=== PATIENT | male | born 1985 | race American Indian/Alaskan Native ===

== ENCOUNTER 2017-06-29 17:36 | Emergency (ER) | payer MEDICAID, OTHER ==
[2017-06-29 17:36] VITALS: BMI 21.8
[2017-06-29 17:48] VITALS: RESP 18
--- NOTE | 2017-06-29 20:01 | ED PDOC ---
Arrival/HPI - General Chief Complaint: Abnormal Skin Integrity Time Seen by Provider: 06/29/17 19:45 - History of Present Illness Narrative History of Present Illness (Text): Patient states he's been having pain in the right buttock since Tuesday06/24/17. Patient states he's never had this before. Patient denies fever, chills, nausea , vomiting, problems with bowel movements and problems with urination. Patient admits to pain and a skin lesion at the right intergluteal region (Raiza Morgan) Past Medical History - Provider Review Nursing Documentation Reviewed: Yes - Past History Past History: Non-Contributing - Infectious Disease Hx of Infectious Diseases: None - Psychiatric Hx Substance Use: No - Anesthesia Hx Anesthesia: No Family/Social History - Physician Review Nursing Documentation Reviewed: Yes Family/Social History: Unknown Family HX Smoking Status: Heavy Smoker > 10 Cigarettes Daily Hx Alcohol Use: Yes Hx Substance Use: No Allergies/Home Meds Allergies/Adverse Reactions: Allergies EGG Allergy (Severe, Verified 06/29/17 17:46) ANAPHYLAXIS Review of Systems - Physician Review All systems were reviewed & negative as marked: Yes - Review of Systems Skin: Abscess (right intergluteal abscess) Physical Exam Vital Signs Reviewed: Yes Temperature: Afebrile Blood Pressure: Normal Pulse: Regular Respiratory Rate: Normal Appearance: Positive for: Well-Appearing, Non-Toxic, Comfortable Mental Status: Positive for: Alert and Oriented X 3 - Systems Exam Head: Present: Atraumatic, Normocephalic Pupils: Present: PERRL Extroacular Muscles: Present: EOMI Conjunctiva: Present: Normal Mouth: Present: Moist Mucous Membranes. No: Dry, Drooling, Trismus Pharnyx: Present: Normal. No: ERYTHEMA, EXUDATE, TONSILS ENLARGED Nose (External): Present: Atraumatic. No: Abrasion, Contusion, Laceration Neck: Present: Normal Range of Motion, Trachea Midline. No: Meningeal Signs, MIDLINE TENDERNESS, JVD, Bruit Respiratory/Chest: Present: Clear to Auscultation, Good Air Exchange, Respiratory Distress Cardiovascular: Present: Regular Rate and Rhythm, Normal S1, S2. No: Murmurs Upper Extremity: Present: Normal Inspection, Normal ROM, NORMAL PULSES, Capillary Refill < 2s. No: Edema Lower Extremity: Present: Normal Inspection, NORMAL PULSES, Normal ROM, Capillary Refill < 2 s. No: Edema Neurological: Present: GCS=15, CN II-XII Intact, Speech Normal Skin: Present: Warm, Dry, Rashes, Normal Color, Induration (2"x1" ), Abscess ( right sided with packing, open wound drainage) Psychiatric: Present: Alert, Oriented x 3, Normal Insight, Normal Concentration Vital Signs Temp Pulse Resp BP Pulse Ox 06/29/17 21:30 73 18 142/40 L 97 06/29/17 19:36 98.6 F 66 12 144/43 L 100 06/29/17 17:48 98.2 F 100 H 18 115/83 99 Medical Decision Making Re-evaluation Time: 21:33 Reassessment Condition: Improving,but remains with symptoms ED Course and Treatment: 06/29/17 21:32 incision and drainage and packing tylenol wound culture and gram stain (Raiza Morgan) Impression: Pt seen and evaluated with medical insurance collector. Pt presented for right buttock pain for 5 days with associated abscess to the area. Plan: -- Incision and drainage -- Reassess and disposition Progress Notes: Incision and drainage performed by medical insurance collector under my supervision. Pt tolerated procedure well. No complications. (Jorge Cason) - Medication Orders Current Medication Orders: Discontinued Medications Acetaminophen (Tylenol 325mg Tab) 650 mg PO STAT STA Stop: 06/29/17 21:26 Last Admin: 06/29/17 21:48 Dose: 650 mg Procedures - Incision and Drainage Site: right inter gluteal abscess Blade Size: 11 I & D Procedure: betadine prep, sterile drapes applied, sterile dressing applied - Incision and Drainage Progress: betaiodine for sterilization 1% lidocaine drawn and given for local anesthetic patient draped with sterile blue towels 11 blade was used to make an incision wound cultures taken abscess drained iodoform packing in place sterile dressings applied (Raiza Morgan) Disposition/Present on Arrival - Present on Arrival Any Indicators Present on Arrival: No History of DVT/PE: No History of Uncontrolled Diabetes: No Urinary Catheter: No History of Decub. Ulcer: No History Surgical Site Infection Following: None - Disposition Have Diagnosis and Disposition been Completed?: Yes Disposition Time: 21:34 Patient Plan: Discharge - Disposition Diagnosis: Gluteal abscess Disposition: HOME/ ROUTINE Condition: IMPROVED Additional Instructions: continue with antibiotics as directed return to ED or family doctor to remove the packing/change packing as needed in two days Prescriptions: Cephalexin [cephalexin] 500 mg PO TID #21 cap Sulfamethoxazole/Trimethoprim [Bactrim 400-80 mg Tablet] 2 each PO BID #28 tablet Forms: [employer] ([place])
[2017-06-29 21:31] VITALS: BP 142/40; PULSE 73; TEMP 98.6; O2SAT 97
== END 2017-06-29 21:49 | disposition home or self-care (01) ==
LOC: ED 17:36
DX: L02.31 Cutaneous abscess of buttock (principal)

== ENCOUNTER 2017-07-01 09:55 | Emergency (ER) | payer MEDICAID, OTHER ==
[2017-07-01 09:56] VITALS: BMI 21.8
[2017-07-01 10:13] VITALS: BP 159/99; PULSE 123; RESP 20; TEMP 97.6; O2SAT 98
--- NOTE | 2017-07-01 11:03 | ED PDOC ---
Arrival/HPI - General Chief Complaint: Abnormal Skin Integrity Time Seen by Provider: 07/01/17 10:25 Historian: Patient - History of Present Illness Narrative History of Present Illness (Text): 07/01/17 10:58 This 31 yo male presents to this ED for wound recheck. Patient stated he had a boil on his buttock. He had an I&D x 2 days ago, and recommended to return to ED for wound check. Patient admits wound dressing change yesterday. Denies new complains. Time/Duration: Other (see hpi) Context: Home Past Medical History - Provider Review Nursing Documentation Reviewed: Yes - Past History Past History: Non-Contributing - Infectious Disease Hx of Infectious Diseases: None - Cardiac Hx Cardiac Disorders: No - Pulmonary Hx Respiratory Disorders: Yes Hx Asthma: Yes - Neurological Hx Neurological Disorder: No - HEENT Hx HEENT Disorder: No - Renal Hx Renal Disorder: No - Endocrine/Metabolic Hx Endocrine Disorders: No - Hematological/Oncological Hx Blood Disorders: No - Integumentary Hx Dermatological Disorder: No - Musculoskeletal/Rheumatological Hx Musculoskeletal Disorders: No - Gastrointestinal Hx Gastrointestinal Disorders: No - Genitourinary/Gynecological Hx Genitourinary Disorders: No - Psychiatric Hx Psychophysiologic Disorder: No Hx Substance Use: No - Anesthesia Hx Anesthesia: No Family/Social History - Physician Review Nursing Documentation Reviewed: Yes Family/Social History: Other (noncontributory) Smoking Status: Heavy Smoker > 10 Cigarettes Daily Hx Alcohol Use: Yes Hx Substance Use: No Allergies/Home Meds Allergies/Adverse Reactions: Allergies EGG Allergy (Severe, Verified 07/01/17 10:08) ANAPHYLAXIS Review of Systems - Review of Systems Constitutional: Normal. absent: Fatigue, Weight Change, Fevers Eyes: Normal ENT: Normal Respiratory: Normal. absent: SOB, Cough Cardiovascular: Normal Gastrointestinal: Normal Genitourinary Male: Normal Musculoskeletal: Other (wound check) Skin: Normal Neurological: Normal Endocrine: Normal Hemo/Lymphatic: Normal Psychiatric: Normal Physical Exam Vital Signs Temp Pulse Resp BP Pulse Ox 07/01/17 10:13 123 H 20 159/99 H 98 07/01/17 10:09 97.6 F Temperature: Afebrile Blood Pressure: Normal Pulse: Regular Respiratory Rate: Normal Appearance: Positive for: Well-Appearing, Non-Toxic, Comfortable Pain Distress: None Mental Status: Positive for: Alert and Oriented X 3 - Systems Exam Head: Present: Atraumatic, Normocephalic Pupils: Present: PERRL Extroacular Muscles: Present: EOMI Conjunctiva: Present: Normal Mouth: Present: Moist Mucous Membranes Neck: Present: Normal Range of Motion Upper Extremity: Present: Normal Inspection, Normal ROM Lower Extremity: Present: Normal Inspection, Normal ROM Neurological: Present: GCS=15, CN II-XII Intact, Speech Normal, Motor Func Grossly Intact, Normal Sensory Function, Normal Cerebellar Funct, Gait Normal Skin: Present: Warm, Dry, Normal Color, Other (left buttock wound has very small amot of pus. No packing visualized, mild induration.). No: Rashes Psychiatric: Present: Alert, Oriented x 3, Normal Insight, Normal Concentration Medical Decision Making ED Course and Treatment: 07/01/17 11:05 Patient has not filled ABX yet. Patient was recommended to start ABX right away. Wound was manually drained. Packing was position within wound. Dressing applied. Patient recommended to return in 2 days. Re-evaluation Time: 11:06 Reassessment Condition: Re-examined, Improved Disposition/Present on Arrival - Present on Arrival Any Indicators Present on Arrival: No History of DVT/PE: No History of Uncontrolled Diabetes: No Urinary Catheter: No History of Decub. Ulcer: No History Surgical Site Infection Following: None - Disposition Have Diagnosis and Disposition been Completed?: Yes Diagnosis: Encounter for wound re-check, Change or removal of wound packing Disposition: HOME/ ROUTINE Disposition Time: 11:07 Patient Plan: Discharge Patient Problems: Current Active Problems Problem Status Onset Change or removal of wound packing Acute Encounter for wound re-check Acute Condition: GOOD Discharge Instructions (ExitCare): Abscess Incision and Drainage (ED) Additional Instructions: Call private doctor for wound check in 2 days. return to emergency if unable to see your doctor. Keep wound clean and dry. Take antibiotic as instructed by previous doctor. Return to emergency sooner if wound worsen or fever. Prescriptions: Ibuprofen [Motrin] 600 mg PO Q8 PRN #20 tab PRN Reason: Pain, Severe (8-10) Referrals: Masoud Galindo DO [Primary Care Provider] - Follow up with primary Forms: [employer] ([place]), WORK NOTE
[2017-07-01] MEDS ORDERED: Tmp-Smz 800 mg-160 mg DS Tab PO STA (11:07)
== END 2017-07-01 11:22 | disposition home or self-care (01) ==
LOC: ED 09:55
DX: Z51.89 Encounter for other specified aftercare (principal); Z48.00 Encounter for change or removal of nonsurgical wound dressing; F17.210 Nicotine dependence, cigarettes, uncomplicated